=== PATIENT | male | born 1955 | race Caucasian/White ===

== ENCOUNTER → 2016-05-09 | Outpatient (CLI) | payer OTHER ==
--- NOTE | 2016-05-09 14:15 | DI ---
XR C-SPINE COMPLETE MIN 4VW,05/09/2016 12:08 PM: Clinical History: Neck pain Previous Exam: None at this facility. Findings: Multiple views of the cervical spine are obtained, and demonstrate postsurgical changes consistent wi th fusion of C3/4 with anterior screw and plate fixation. The prevertebral soft tissues are unremarka ble. The paranasal sinuses are unremarkable. The lung apices are clear. Diffuse degenerative changes of the lower cervical spine are noted with uncovertebral joint osteophyt e formation. There is interbody fusion of C3-C7. There is only partial bony fusion of C5/6. Impression: Diffuse degenerative changes of the cervical spine and postsurgical changes as above.
== END ==
LOC: MOB RAD 12:13
PROVIDERS: ATTEND Neurological Surgery
DX: M54.2 Cervicalgia (principal); M54.6 Pain in thoracic spine; M79.602 Pain in left arm; M79.605 Pain in left leg; M47.812 Spondylosis without myelopathy or radiculopathy, cervical region; Z98.1 Arthrodesis status
CPT/HCPCS: 72050; 99215

== ENCOUNTER → 2016-05-16 | Outpatient (CLI) | payer OTHER ==
--- NOTE | 2016-05-16 14:26 | DI ---
CT CERVICAL SPINE W/CONTRAST,05/16/2016 12:38 PM: Clinical History: Chronic neck pain status post fusion. Previous Exam: X-ray myelogram. Findings: Multiple helically acquired CT images are obtained through the cervical spine following the intrathec al administration of contrast. The base of the skull is unremarkable. There are postsurgical changes consistent with interbody fusion of C3/4. There is also interbody fusi on at C4/5, C5/6 and C6/7. There is good new bone formation at these levels. There is some partial fu joselito of the C5/6 level. There is some straightening of the cervical spine. There are uncovertebral joint osteophytes at the C3/4 level causing some severe right and mild to mod erate left neural foraminal narrowing. There is some mild uncovertebral joint osteophyte formation at C4/5 as well. There is mild central ca nal stenosis at this level is well. At C5/6, there is some uncovertebral joint osteophyte formation and some facet hypertrophy causing mo derate bilateral neural foraminal narrowing with some mild central canal stenosis. C6/7 demonstrates near-complete fusion at this level with some uncovertebral joint osteophytes causin g mild right and moderate to severe left neural foraminal narrowing and mild to moderate central keily l stenosis. C7/T1: There is some disc degeneration without significant stenosis. Impression: 1. Degenerative changes throughout the cervical spine with uncovertebral joint osteophytes which are worst at the right C3/4 level where there is severe right neuroforaminal narrowing.
--- NOTE | 2016-05-16 15:15 | DI ---
Lumbar, thoracic and cervical MYELOGRAM, 05/16/2016 12:30 PM: Clinical History: The upper and lower back pain. Previous Exam: None at this facility. Informed signed consent was obtained prior to the procedure. The patient was informed of benefits and risks, to include but not be limited, to allergies to medications (skin preparation agents, local an esthetic, and contrast agent), infection, and "spinal" headaches. The lower back was prepped with Bet adine solution and alcohol. 1% lidocaine without epinephrine was used for intradermal and subcutaneou s local anesthesia. Under fluoroscopic guidance, a 22 gauge spinal needle was then introduced into th e spinal canal from the left paraspinal approach at the level of L4/5. A single pass was performed an d this revealed droplets of clear colorless CSF. 15 mL of Omipaque 300 was injected into the spinal c anal with fluoroscopic monitoring. Spot films of the lumbar spine were obtained followed by a cross t able lumbar spine view. The patient tolerated the procedure well and was transferred to the CT scan s [facility] for the CT myelogram. Following the CT scan, the patient was observed in the department for approximately 1 hour. The patie nt was then discharged home with a lokie driver and was instructed to minimize activity for the rest of the day. The patient was also instructed to push fluids for the remainder of the day and to sleep on an extra pillow with the head up if possible. The patient was advised to watch for signs of an infection (including but not limited to redness, swelling, fever) or an unusually severe headache. The patient was instructed to either contact the x-ray department directly or to report to the Emergency Room im mediately if problems arose. Findings: AP, lateral and oblique views of the cervical spine were obtained demonstrating significant uncovertebral joint osteophyte formation at the C3/4 level on the right. Reading: Successful myelogram. CT pending. Uncovertebral joint osteophytes worst at the C3/4 level.
--- NOTE | 2016-05-16 15:22 | DI ---
CT LUMBAR SPINE W/CONTRAST,05/16/2016 12:38 PM: Clinical History: Low back pain Previous Exam: None at this facility. Findings: Multiple helically acquired CT images are obtained through the lumbar spine following the intrathecal administration of contrast. The distal conus appears normal lies at the L1 level. Vertebral body height is preserved. Intervertebral disc height is preserved as well there is a small broad-based disc bulge at L2/3 without significant stenosis. The central canal and neural foramina are widely patent. Limited evaluation of the intra-abdominal structures is unremarkable. Peripheral vascular calcificati ons are seen. There is some mild sclerosis of the sacroiliac joints. There is only minimal facet hype rtrophy. Impression: No significant stenosis at this level.
--- NOTE | 2016-05-16 15:28 | DI ---
CT THORACIC SPINE W/CONTRAST,05/16/2016 12:38 PM: Clinical History: Mid back pain. Previous Exam: None at this facility. Findings: Multiple helically acquired CT images are obtained through the thoracic spine following intrathecal a dministration of contrast. Vertebral body height is preserved. Intervertebral disc height is also preserved. There is some mild facet hypertrophy at the T9/10 level. There is no significant central canal nor neural foraminal narrowing. There is mild subsegmental atelectasis in the lung bases. Impression: Mild degenerative changes of the posterior articular facets at T9/10. There is no significant central canal nor neuroforaminal narrowing.
== END ==
LOC: RAD 12:31
PROVIDERS: ATTEND Neurological Surgery
DX: M54.2 Cervicalgia (principal); M54.5 Low back pain; M48.06 Spinal stenosis, lumbar region; M54.6 Pain in thoracic spine; M47.814 Spondylosis without myelopathy or radiculopathy, thoracic region; M47.812 Spondylosis without myelopathy or radiculopathy, cervical region; Z98.1 Arthrodesis status
CPT/HCPCS: 72126; 72129; 72132; 72240; 72255; 72265